=== PATIENT | female | born 1935 | race Caucasian/White ===

== ENCOUNTER → 2019-06-02 | Outpatient (CLI) | payer MEDICARE | END | disposition home or self-care (01) | LOC: LABPAT 08:57 | PROVIDERS: ATTEND Orthopaedic Surgery | DX: Z01.812 Encounter for preprocedural laboratory examination (principal); M16.11 Unilateral primary osteoarthritis, right hip | CPT/HCPCS: 87070 ==

== ENCOUNTER 2019-06-09 06:31 | Inpatient (IN) | payer MEDICARE ==
--- NOTE | 2019-06-08 14:08 | HP ---
HISTORY AND PHYSICAL REASON FOR ADMISSION: Surgery is scheduled for 06/09/2019 HISTORY OF PRESENT ILLNESS: Abeba Henson is an 84-year-old patient seen with symptomatic right hip osteoarthritis. We discussed options for treatment. She elected to proceed with right total hip arthroplasty via direct anterior approach. Consent was obtained regarding the procedure. Medical clearance was provided by Dr. Maddox. PAST MEDICAL HISTORY: Hypertension, rhh-rncbume-wtgkcvomo diabetes. SURGICAL HISTORY: Right knee unicompartmental arthroplasty. MEDICATIONS: Losartan, metformin, meloxicam. ALLERGIES: None. SOCIAL HISTORY: She denies current tobacco use. PHYSICAL EXAMINATION: Evaluation of the right hip, she has very limited range of motion with severe pain. Positive hip impingement sign. Diffuse tenderness. Gross weakness. Distal neurovascular exam is intact. RADIOGRAPHS: Radiographs of the right hip reveal severe osteoarthritic changes. IMPRESSION: 1. Right hip osteoarthritis. 2. Hypertension. 3. Ndl-wmdksvi-jxbfgpjve diabetes. PLAN: Direct anterior right total hip arthroplasty. Surgery is scheduled for 06/09/2019. MMODL / IJN: [id number] /
[~2019-06-09 06:31] MED LIST: LIDOCAINE 1% 20 ML VIAL (10MG/ML) FOR IV START INTRADERMA PRN; MIDAZOLAM 2 MG/2 ML VIAL IV PRN; ROPIVACAINE 246.25 MG, EPINEPHrine 0.5 MG, KETOROLAC 30 MG, cloNIDine HCL/PF 80 MCG, WA... MISCELLANE ONE; TRANEXAMIC ACID 1,000 MG in SODIUM CHLORIDE 0.9% 100 ML IVPB ONE
[2019-06-09 07:01] LABS: Glucose,Whole Blood 129 mg/dL (75-99)
[2019-06-09] MEDS: MELOXICAM 7.5 MG TAB PO ONE ×2 (07:07→12:13)
[2019-06-09] MEDS: ACETAMINOPHEN TAB 500 MG TAB PO ONE ×2 (07:07→12:13)
[2019-06-09] MEDS: LACTATED RINGERS 1,000 ML IV SCH ×3 (07:08→12:13)
[2019-06-09] MEDS ORDERED: ONDANSETRON 4 MG/2 ML VIAL IVP ONE (07:10)
[2019-06-09] MEDS ORDERED: DEXAMETHASONE SOD PHOSPHATE 10 MG/ML 1 ML VIAL IV ONE (07:10)
[2019-06-09] MEDS ORDERED: SCOPOLAMINE 1.5MG/72HR PATCH TRANSDERM ONE (07:15)
[2019-06-09] MEDS ORDERED: MIDAZOLAM 2 MG/2 ML VIAL ONE (07:24)
[2019-06-09] MEDS ORDERED: fentaNYL (PF) 50 MCG/ML 2 ML AMP ONE (07:24)
[2019-06-09] MEDS ORDERED: HYDROmorphone (PF) 1 MG/ML ONE (07:24)
[2019-06-09] MEDS ORDERED: SODIUM CHLORIDE 0.9% 100 ML BAG ONE (07:24)
[2019-06-09] MEDS ORDERED: LIDOCAINE 1% INJ 10MG/ML (20 ML MDV) ONE (07:24)
[2019-06-09] MEDS ORDERED: PROPOFOL 10 MG/ML 20 ML VIAL IV ONE (07:24)
[2019-06-09] MEDS ORDERED: SUCCINYLCHOLINE CHLORIDE 100 MG/5 ML SYR IV ONE (07:24)
[2019-06-09] MEDS ORDERED: TRANEXAMIC ACID 1,000 MG/10 ML VIAL ONE (07:24)
[2019-06-09] MEDS ORDERED: ceFAZolin 3,000 MG in SODIUM CHLORIDE 0.9% IRRIGATIO 3,000 ML IRRIGATION ONE (08:15)
[2019-06-09] MEDS ORDERED: ONDANSETRON 4 MG/2 ML VIAL IVP PRN ×2 (09:27→15:22)
[2019-06-09] MEDS ORDERED: HYDROmorphone 0.5 MG/0.5 ML SYRINGE IVP PRN ×3 (09:27)
[2019-06-09] MEDS ORDERED: NALOXONE 0.4 MG/ML 1 ML VIAL IV PRN (09:27)
[2019-06-09] MEDS ORDERED: HYDROcodone/APAP 5-325MG 1 EACH TAB PO PRN (09:27)
--- NOTE | 2019-06-09 09:27 | P.OP ---
Date of Procedure: 06/09/19 Preoperative Diagnosis: Right hip osteoarthritis Postoperative Diagnosis: Right hip osteoarthritis Procedure(s) Performed: Direct anterior right total hip arthroplasty Implants: 1. Depuy Corail KA size 12 with collar press-fit femoral stem 2. Depuy Royal 52 mm press-fit multi hole acetabular shell 3. Depuy pinnacle 52 mm OD 36 mm ID neutral polyethylene acetabular liner 4. Depuy 36 mm -2 metal femoral head Anesthesia: MICHELLE, local Surgeon: Wai Ratliff Estimated Blood Loss (ml): 100 Pathology: other (Femoral head) Condition: stable Disposition: PACU Indications for Procedure: 84-year-old patient seen with symptomatic right hip osteoarthritis. After treatment options were discussed, she elected to proceed with total hip arthroplasty. Operative Findings: See description of procedure Description of Procedure: The patient was taken to the operative suite. Patient underwent a spinal anesthetic by the department of anesthesia. Patient was then transferred to the [place] table. Patient was given preoperative IV antibiotics and TXA. Both lower extremities were placed in standard leg spars. It did not appear that the spinal was working in the patient subsequently underwent a general anesthetic by the department of anesthesia. The hip was then prepped and draped in the normal sterile orthopedic fashion. A standard anterior incision was made beginning 3 cm lateral and 1 cm distal to the ASIS extending 10 cm. Dissection was then carried down through the subcutaneous soft tissues down to the fascia overlying the tensor fascia abdoulaye. An incision was now made through the fascia. Careful dissection was taken down exposing the tensor fascia abdoulaye muscle. A Cobra retractor was now placed along the medial femoral neck and a second one along the lateral femoral neck. The venous circumflex vessels were now identified, cauterized and clipped. We identified the anterior hip capsule. An incision was made through the hip capsule along the lateral border. I performed a partial anterior capsulectomy. Retractors were now placed around the femoral neck itself. A femoral neck cut was now made with a sagittal saw. It was completed with an osteotome at the lateral neck area. The femoral head was now removed without difficulty. The extremity was now rotated to 45 of external rotation. It was locked in position. Residual labrum was now debrided out. Serial reaming was performed of the acetabulum while my retail administrative assistant assisted holding an anterior retractor for exposure. Once we reached the appropriate size and a trial was position and fit nicely. The appropriate size was now chosen opened and made available. It was introduced into the acetabulum without difficulty. The C-arm/fluoroscopy was now brought into the operative field. We made sure we had a true AP pelvic view. We now under direct C-arm/fluoroscopy introduced into the acetabular component with appropriate version and inclination. I held the cup in appropriate position while my retail administrative assistant used a mallet to seat the acetabular component. I noted the component now to be well seated and stable. Acetabular cup introduce her was removed. The C-arm was pulled back. An appropriate liner was introduced and clicked into position. It was felt to be stable. At this point retractors were removed. The extremity was now placed into 120 external rotation with no traction. The leg was now d ropped to the ground and adducted. Appropriate retractors were now positioned along the proximal femur. We also placed our femoral look into position. Additional capsular releasing was performed to gain access to the proximal femur. We now used a box osteotome. A canal finder was now utilized. Serial broaching was now performed with the assistance of my retail administrative assistant tapping the broaches down with a mallet while held the broach in appropriate rotation and position. This was done until we reached the appropriate size with good overall rotational stability. Appropriate calcar planing was performed. A trial head/neck was placed into position. The hip was now reduced. The C- arm/fluoroscopy was brought back into the operative field. A spot film was obtained of the nonoperative hip. A spot film was obtained of the trial components. Overlays were performed, we noted good overall alignment and positioning for determining leg length. The C-arm/fluoroscopy was pulled back. Retractors were repositioned and the hip was dislocated. The leg was again taken down to the ground and adducted. Appropriate retractors were repositioned as well as the femoral hook. All trial components were removed. The femoral implant was opened along with the femoral head. The femoral implant was introduced on the appropriate handle into our pre-broached area. I held the component position while my retail administrative assistant used a mallet to seat the femoral component. The femoral component was now noted to be well seated and stable.. The femoral head was introduced with good positioning and fixation noted. Retractors were now removed. The hip was now reduced. There appeared be good positioning of the hip confirmed on intraoperative fluoroscopy. Spot films were obtained to document this. A second gram of TXA was given. The deep and superficial soft tissues were infiltrated with local analgesic. Bipolar cautery had been utilized intermittently through the procedure for hemostasis. The wound was irrigated copiously with pulse lavage mechanical irrigation. The fascia was repaired with Vicryl suture. The subcutaneous soft tissues were repaired in layers with Vicryl suture. The skin was approximated with pernio/Dermabond. Sterile dressings were applied. Patient was then awakened, transferred to a bed and taken to recovery in stable condition.
--- NOTE | 2019-06-09 09:33 | FL ---
Fluoroscopy HISTORY: Hip replacement 18 seconds fluoroscopy time supplied to the referring clinician. 2 intraoperative C-arm images docum ent the procedure. See dictated report from orthopedic surgery.
--- NOTE | 2019-06-09 09:33 | XR ---
Limited right hip HISTORY: Anterior hip replacement 2 intraoperative C-arm images document the procedure.
[2019-06-09] MEDS: HYDROmorphone 0.5 MG/0.5 ML SYRINGE IVP PRN ×2 (09:48→10:18)
[2019-06-09 10:13] LABS: Glucose,Whole Blood 166 mg/dL (75-99)
[2019-06-09] MEDS: SODIUM CHLORIDE 0.9% 1,000 ML IV SCH (12:14)
[2019-06-09 13:36] VITALS: BMI 31.5
[2019-06-09] MEDS ORDERED: ACETAMINOPHEN TAB 500 MG TAB PO PRN (13:36)
[2019-06-09] MEDS ORDERED: diphenhydrAMINE 25 MG CAP PO PRN (13:40)
[2019-06-09] MEDS: LOSARTAN 50 MG TAB PO SCH (15:16)
[2019-06-09 18:18] LABS: Glucose,Whole Blood 225 mg/dL (75-99)
[2019-06-09] MEDS: INSULIN ASPART (NovoLOG) 100 UNIT/ML VIAL SQ SCH ×2 (18:24→20:44)
[2019-06-09] MEDS: HYDROcodone/APAP 5-325MG 1 EACH TAB PO PRN (19:12)
[2019-06-09] MEDS: SENNOSIDES-DOCUSATE SODIUM 1 EACH TAB PO SCH (20:44)
[2019-06-09 20:48] LABS: Glucose,Whole Blood 238 mg/dL (75-99)
--- NOTE | 2019-06-09 23:35 | CONS ---
CONSULTATION DATE OF SERVICE: 06/09/2019. REASON FOR CONSULTATION: Advice regarding diabetes and other medical issues requested by Dr. Ratliff. HISTORY OF PRESENT ILLNESS: This 84-year-old woman with a past medical history of multiple medical problems including diabetes, hypertension, hyperlipidemia, DJD, hysterectomy, being followed by Dr. Claribel Maddox in the outpatient setting underwent direct anterior right total hip joint arthroplasty by Dr. Ratliff. There is no history of chest pain. No history of palpitations. No headache, loss of consciousness, nausea, vomiting, fevers and chills. PAST MEDICAL HISTORY: History of diabetes, hypertension, hyperlipidemia, history of DJD, history of hysterectomy. MEDICATIONS: Prior to admission include: 1. Metformin 500 mg p.o. daily. 2. Moduretic 1 tablet p.o. daily. 3. Mobic 7.5 daily. 4. Cozaar 50 mg. 5. Lipitor 20 mg daily. 6. Tylenol p.m. 1 tab q.h.s. p.r.n. ALLERGIES: None. FAMILY HISTORY: No history of heart disease or strokes in the family. SOCIAL HISTORY: No history of smoking. No history of alcohol. REVIEW OF SYSTEMS: ENT: Diminished vision. Diminished hearing. CARDIOVASCULAR: No angina or palpitations. RESPIRATIONS: No cough or hemoptysis. GI no nausea or vomiting. no dysuria. NERVOUS SYSTEM: No numbness or weakness. ALLERGY/IMMUNOLOGY: No asthma or hayfever. MUSCULOSKELETAL: As mentioned earlier. HEMATOLOGY/ONCOLOGY: No history of anemia. ENDOCRINE: Diabetes mellitus. CONSTITUTIONAL: As mentioned earlier. DERMATOLOGY: Negative. RHEUMATOLOGY: Negative. PSYCHIATRIC: As mentioned earlier. PHYSICAL EXAMINATION: The patient is alert and oriented times three. Pulse is 85. Blood Pressure 140/65. Respirations 16. Pulse ox 99% on 2 L. HEENT: Conjunctivae normal. NECK: No jugular venous distention. CARDIOVASCULAR: S1, S2 muffled. RESPIRATIONS: Breath sounds diminished in the bases. No rhonchi. No crackles. ABDOMEN: Soft, nontender. LEGS: Status post surgery. CENTRAL NERVOUS SYSTEM: no focal deficits. LABS: Accu-Cheks 166. Otherwise previous preop labs CBC, coags are normal. Chemistry shows BUN and creatinine ratio was high but BUN and creatinine both are normal. The LDH 124 and cholesterol is 202. ASSESSMENT: 1. Status post right total hip joint arthroplasty. 2. Diabetes type 2. 3. Hypertension. 4. Hyperlipidemia. 5. Degenerative joint disease. 6. History of cataracts. 7. High BUN and creatinine ratio prior to admission. RECOMMENDATIONS AND DISCUSSION: This 84-year-old woman presented after surgery, at this time, I recommend to continue current medications, symptomatic treatment. Otherwise, resume the home medications. I would recommend hold diuretics and we will continue to monitor. Otherwise continue with IV fluids for tonight and repeat labs in the morning. DVT prophylaxis. Incentive spirometry. We will follow the patient closely. Patient may be asked to follow up with primary physician closely in the outpatient setting. Thank you Dr. Ratliff for letting us participate in the care of this patient. MMVINCENTL / IJN: [id number] /
[2019-06-10] MEDS: HYDROcodone/APAP 5-325MG 1 EACH TAB PO PRN ×3 (05:17→18:26)
[2019-06-10] MEDS: SODIUM CHLORIDE 0.9% 1,000 ML IV SCH (05:18)
[2019-06-10 07:04] LABS: Glucose,Whole Blood 153 mg/dL (75-99)
[2019-06-10 07:08] LABS: Calcium 8.3 mg/dL (8.4-10.2); Potassium 3.8 mmol/L (3.5-5.1)
[2019-06-10 07:25] LABS: Basophils % (A) 1 %; Eosinophils % (A) 1 %; HCT 27.2 % (34.0-46.0); Lymphocytes % (A) 20 %; MCH 30.2 pg (25.0-35.0); MCV 88.9 fL (80.0-100.0); Mean Platelet Volume 7.5; Monocytes % (A) 5 %; Neutrophils % (A) 73 %; Platelet Count 198 k/uL (150-450); RBC 3.06 m/uL (3.80-5.40); WBC 7.3 k/uL (3.8-10.6)
[2019-06-10 07:26] LABS: Basophils # (A) 0.1 k/uL (0-0.2); Lymphocytes # (A) 1.5 k/uL (1.0-4.8); Monocytes # (A) 0.4 k/uL (0-1.0); Neutrophils # (A) 5.3 k/uL (1.3-7.7)
[2019-06-10 07:29] LABS: HGB 9.2 gm/dL (11.4-16.0)
[2019-06-10] MEDS: INSULIN ASPART (NovoLOG) 100 UNIT/ML VIAL SQ SCH ×4 (07:34→20:18)
--- NOTE | 2019-06-10 07:46 | P.PN ---
Progress Note - Text Progress Note Date: 06/10/19 Patient seen lying in bed comfortably. Patient reports her pain is under control. Patient has no new complaints today. Incision stable. Thigh soft. Distal neurovascular exam is intact. Negative Mosesnegative Homans. Impression: Status post direct anterior right total hip arthroplasty Plan: Physical therapy DVT prophylaxis Medical management Plan discharge to home tomorrow
[2019-06-10] MEDS: LOSARTAN 50 MG TAB PO SCH (08:28)
[2019-06-10] MEDS: FAMOTIDINE 20 MG TAB PO SCH (08:28)
[2019-06-10] MEDS: MELOXICAM 7.5 MG TAB PO SCH (08:28)
[2019-06-10] MEDS: metFORMIN 500 MG TAB PO SCH (08:28)
[2019-06-10] MEDS: ATORVASTATIN 20 MG TAB PO SCH (08:28)
[2019-06-10] MEDS: LACTATED RINGERS 1,000 ML IV SCH (08:41)
[2019-06-10] MEDS ORDERED: aMILoride-HCTZ 5-50 mg 1 EACH TAB PO SCH (09:00)
[2019-06-10] MEDS ORDERED: ENOXAPARIN 40 MG/0.4 ML SYRINGE SQ SCH (09:00)
[2019-06-10 11:55] LABS: Glucose,Whole Blood 127 mg/dL (75-99)
--- NOTE | 2019-06-10 16:36 | PN ---
PROGRESS NOTE DATE OF SERVICE: 06/10/2019 This 84-year-old woman who was admitted after right total knee joint arthroplasty is being closely monitored. No chest pain. No palpitations. No fever. PHYSICAL EXAMINATION: Alert and oriented x3. Pulse 72, blood pressure 103/56, respiration 18, temperature 98.8, pulse ox 94% on room air. HEENT: Conjunctivae normal. NECK: No jugular venous distention. CARDIOVASCULAR SYSTEM: S1, S2 muffled. RESPIRATORY SYSTEM: Breath sounds diminished at the bases. No rhonchi. No crackles. ABDOMEN: Soft, non-tender. LEGS: Status post hip arthroplasty. NERVOUS SYSTEM: No focal deficit. LABS: WBC 7.3, hemoglobin 9.2. Sodium 136. Accu-Cheks noted. Calcium 8.3. ASSESSMENT: 1. Status post right total hip joint arthroplasty. 2. Diabetes mellitus, type 2. 3. Hypertension. 4. Hyperlipidemia. 5. Degenerative joint disease. 6. History of cataracts. 7. High BUN/creatinine ratio prior to admission, normalized. 8. Mild hyponatremia. 9. Mild hypocalcemia. 10.Anemia, as expected. RECOMMENDATIONS AND DISCUSSION: In this 84-year-old woman who presented after surgery, I would recommend continuing the current management and symptomatic treatment. Otherwise, iron supplements, vitamin D supplements. We will continue to monitor. Recommend close followup with primary physician in the outpatient setting. Further recommendations to follow. MMODL / IJN: [id number] /
[2019-06-10 17:00] LABS: Glucose,Whole Blood 172 mg/dL (75-99)
[2019-06-10] MEDS: CALCIUM CARB-VIT D 500MG-200UN 1 EACH TAB PO SCH (17:36)
[2019-06-10] MEDS: SENNOSIDES-DOCUSATE SODIUM 1 EACH TAB PO SCH (20:17)
[2019-06-10 20:26] LABS: Glucose,Whole Blood 188 mg/dL (75-99)
[2019-06-11] MEDS: HYDROcodone/APAP 5-325MG 1 EACH TAB PO PRN ×2 (00:53→13:24)
[2019-06-11] MEDS: SODIUM CHLORIDE 0.9% 1,000 ML IV SCH (00:55)
[2019-06-11 07:07] LABS: Glucose,Whole Blood 114 mg/dL (75-99)
[2019-06-11] MEDS: INSULIN ASPART (NovoLOG) 100 UNIT/ML VIAL SQ SCH ×2 (07:13→12:03)
[2019-06-11] MEDS: LOSARTAN 50 MG TAB PO SCH (07:35)
[2019-06-11] MEDS: CALCIUM CARB-VIT D 500MG-200UN 1 EACH TAB PO SCH (07:35)
[2019-06-11] MEDS: metFORMIN 500 MG TAB PO SCH (07:35)
[2019-06-11] MEDS: ATORVASTATIN 20 MG TAB PO SCH (07:35)
[2019-06-11] MEDS: LACTATED RINGERS 1,000 ML IV SCH (07:36)
[2019-06-11] MEDS: MELOXICAM 7.5 MG TAB PO SCH (07:36)
[2019-06-11] MEDS: FAMOTIDINE 20 MG TAB PO SCH (07:36)
[2019-06-11] MEDS ORDERED: ENOXAPARIN 30 MG/0.3 ML SYRINGE SQ SCH (09:00)
[2019-06-11 09:10] VITALS: BP 132/62; PULSE 75; RESP 18; TEMP 98.8
--- NOTE | 2019-06-11 11:32 | P.PN ---
Progress Note - Text Progress Note Date: 06/11/19 Patient seen sitting up in a chair comfortably. She states that she has been getting around fairly well with her walker. Her pain is under control with oral medication. Incision stable. Thigh soft. Ming and Homans are both negative. Impression: Status post direct anterior right total hip arthroplasty Plan: Discharge to home today
[2019-06-11 11:56] LABS: Glucose,Whole Blood 139 mg/dL (75-99)
[2019-06-11] MEDS ORDERED: FERROUS SULFATE 325 MG TAB PO SCH (12:30)
--- NOTE | 2019-06-11 14:08 | CDI ---
Documentation Clarification Form Date: 06/11/2019 1:58:04 PM From: Ayala Ziegler RN, CCDS Admit Date: 06/09/2019 6:31:00 AM Patient Name: Abeba Henson Visit Number: [id number] ATTENTION: The Clinical Documentation Specialists (CDI) and [facility] Coding Staff appreciate your assistance in clarifying documentation. Please respond to the clarification below the line at the bottom and electronically sign. The CDI & [facility] Coding staff will review the response and follow-up if needed. Please note: Queries are made part of the Legal Health Record. If you have any questions, please contact the author of this message via ITS. Dr. Cammy Fisher A diagnosis of anemia lacks specificity to accurately reflect your patients severity of condition and clarification is needed. History/Risk Factors: Right VENICE this admit, HTN, NIDDM Clinical indicators: 06/10 Medical Progress Note: Anemia as expected." Hemoglobin: 9.2 Hematocrit: 27.2 Treatment: monitoring labs Feosol 325 mg PO QD In order to capture the severity of condition, please clarify the type of anemia and etiology if known: Acute blood loss anemia Acute on chronic blood loss anemia Chronic blood loss anemia Iron deficiency anemia Nutritional anemia Anemia of chronic disease Unable to determine Other, please specify (Last Revision: June 2017) Unable to determine MTDD
--- NOTE | 2019-06-11 19:37 | PN ---
PROGRESS NOTE DATE OF SERVICE: 06/11/2019. This 84-year-old woman was admitted after right total hip joint arthroplasty, improving significantly. No chest pain. No palpitations. No fever. PHYSICAL EXAM: Alert and oriented times three. Pulse 75. Blood pressure 122/60, respiration 18, temperature 98.8, pulse ox 94% on room air. HEENT is conjunctivae normal. Oral mucosa moist. NECK is no jugular venous distention. No carotid bruit. No lymph node enlargement. Cardiovascular systems: S1, S2 muffled. RESPIRATION: Breath sounds diminished in the bases. No rhonchi. No crackles. ABDOMEN: Soft. LEGS: Status post surgery. CENTRAL NERVOUS SYSTEM: No focal deficits. LABORATORY DATA: Accu-Cheks 188, 114, 139. ASSESSMENT: 1. Status post right total hip joint arthroplasty. 2. Diabetes mellitus type 2. 3. Hypertension. 4. Hyperlipidemia. 5. History of degenerative joint disease. 6. History of cataracts. 7. High BUN and creatinine ratio prior to admission, improved. 8. Mild hyponatremia. 9. Mild hypocalcemia. 10.Anemia of undetermined etiology, unable to determined. RECOMMENDATIONS AND DISCUSSION: Recommend to continue current medications, management and symptomatic treatment. Otherwise, at this time, I recommend to follow the patient closely. Continue the home medications. Follow closely with primary physician in the outpatient setting. Rest of the recommendations per surgery. Further recommendations to follow. MMODL / IJN: [id number] /
== END 2019-06-11 15:43 | disposition home health service (06) | DRG 470 ==
LOC: 2ORMAIN 06:31 → 4SSUR 11:53
PROVIDERS: ADMIT Orthopaedic Surgery; ATTEND Orthopaedic Surgery
PROC: 0SR902A Replacement of Right Hip Joint with Metal on Polyethylene Synthetic Substitute, Uncemented, Open Approach (ICD-10-PCS; principal; 2019-06-09 07:30)
DX: M16.11 Unilateral primary osteoarthritis, right hip (principal); E87.1 Hypo-osmolality and hyponatremia; E11.9 Type 2 diabetes mellitus without complications; E78.5 Hyperlipidemia, unspecified; E83.51 Hypocalcemia; D64.9 Anemia, unspecified; I10 Essential (primary) hypertension; Z96.659 Presence of unspecified artificial knee joint; Z79.84 Long term (current) use of oral hypoglycemic drugs; Z90.710 Acquired absence of both cervix and uterus; Z98.49 Cataract extraction status, unspecified eye
CPT/HCPCS: 36415; 73501; 80048; 85025; 86850; 86900; 86901; 88300

== ENCOUNTER → 2020-04-30 | Outpatient (CLI) | payer MEDICARE ==
--- NOTE | 2020-04-30 10:27 | CT ---
EXAMINATION TYPE: CT shoulder RT wo con DATE OF EXAM: 04/30/2020 COMPARISON: Outside shoulder x-ray November 05, 2019 HISTORY: Right shoulder pain with decreased range of motion. CT DLP: 413 mGycm Automated exposure control for dose reduction was used. FINDINGS: Moderate to severe narrowing of the acromioclavicular joint with moderate to severe superior capsular hypertrophy. There is loss of the underlying fat plane fat level distal clavicle coronal image 47. C orrelate for underlying impingement. Distal acromion morphology unremarkable. Glenohumeral joint shows severe narrowing particularly inferior aspect where there are subchondral cy stic change involving the inferior one half of the glenoid. There is prominent spur extending inferio rly from the medial humeral head. Additional spurring anteriorly and posteriorly is present. Rotator cuff muscle bulk is maintained. There is some subchondral cystic change and sclerosis in the superior aspect of the humeral head. Hill-Sachs deformity fell present along the posterior lateral as pect of the right humeral head on most superior axial images. Focal fluid collection anterior to the subscapularis muscle axial image 27 is suspicious for bursitis . Visualized lungs are grossly clear. Osseous structures are somewhat demineralized. Enlarged bilateral pulmonary arteries are present, CT findings consistent with underlying pulmonary hypertension. Coron gucci artery calcification is partially imaged which is noted marked of underlying coronary artery dise ase. IMPRESSION: As above. Fairly severe degenerative changes of right shoulder.
== END | disposition home or self-care (01) ==
LOC: RADCTMAIN 09:23
PROVIDERS: ATTEND Orthopaedic Surgery Sports Medicine
DX: M19.011 Primary osteoarthritis, right shoulder (principal)

== ENCOUNTER → 2020-11-05 | Outpatient (CLI) | payer MEDICARE ==
--- NOTE | 2020-11-05 10:27 | US ---
EXAMINATION TYPE: US renal artery duplex complet DATE OF EXAM: 11/05/2020 COMPARISON: NONE CLINICAL HISTORY: I10 essential hypertension. Pt states worsening HTN Difficult exam, 85 year old pt, difficult exam MEASUREMENTS: RENAL SIZE: Rt Kidney: 10.1 x 4.3 x 4.5 cm Lt Kidney: 9.6 x 5.1 x 4.5 cm RESISTANCE INDEX Right: 0.8 Left: 0.7 RA/AO RATIO (< 3.5 ) Right: 1.2 Left: 1.1 RA VELOCITY ( < 180 cm/s) Right: 152 Left: 141 Abnormal appearance to distal portion of aorta ?septation vs. 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 No renal stenosis. 2. 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 Consider CT byron elation. 3. Multicystic kidneys.
== END | disposition home or self-care (01) ==
LOC: RADUSWWP 08:37
PROVIDERS: ATTEND Family Medicine
DX: I71.02 Dissection of abdominal aorta (principal); Q61.3 Polycystic kidney, unspecified; I10 Essential (primary) hypertension
CPT/HCPCS: 93975

== ENCOUNTER → 2020-11-26 | Outpatient (CLI) | payer MEDICARE ==
--- NOTE | 2020-11-26 16:04 | CT ---
EXAMINATION TYPE: CT angio abdomen pelvis DATE OF EXAM: 11/26/2020 HISTORY: Chronic kidney disease. High blood pressure. Abnormal US. CT DLP: 1758mGycm Automated Exposure Control for Dose Reduction was Utilized. CONTRAST: CTA scan of the abdomen and pelvis is performed without oral and without and with IV Contrast, patien t injected with 80 mL of Isovue 370. Aneurysm protocol with 3-D reconstructed images created on an in dependent workstation and reviewed. COMPARISON: Ultrasound renal artery duplex November 05, 2020 FINDINGS: VASCULAR: Mild to moderate calcified plaque of the upper to mid abdominal aorta. Patent celiac artery and SMA without significant stenosis. Patent bilateral single renal arteries with prominent calcifie d plaque at their origin, no significant stenosis clearly seen. There is more moderate to severe calc ified plaque in the infrarenal abdominal aorta. There is patent YOGESH. There is no linear hypodensity t o suggest dissection. No greater than 3.0 cm aneurysm. There is however small focal 1.8 cm aneurysm i n the right common iliac artery axial image 42. Moderate to severe calcified plaque in the iliac epifanio ry branches without significant stenosis is present. There is more mild plaque in the femoral arterie s in the groin region. LUNG BASES: Slightly elevated left hemidiaphragm. Calcification level of the aortic valve. Mild/moder ate calcification in the right coronary and left circumflex distributions. LIVER/GB: No significant abnormality is appreciated. PANCREAS: No significant abnormality is seen. SPLEEN: Tiny splenule axial image 16 series 4. 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 KIDNEYS: Cortical thinning both kidneys. No concerning renal mass or hydronephrosis. Small parapelvic cysts centrally in the left kidney are present. BOWEL: Small sized hiatal hernia. Suboptimal evaluation without enteric contrast. Sigmoid colonic div erticulosis. No suspicious bowel dilatation. UTERUS/ADNEXA: Uterus surgically absent or markedly atrophic in appearance. LYMPH NODES: No greater than 1cm abdominal or pelvic lymph nodes are appreciated. OSSEOUS STRUCTURES: Metallic artifact from bilateral arthroplasty causes streak artifact limiting fahad luation of pelvic structures. Grade 1 anterolisthesis L5 on S1 with severe disc space narrowing. Mild disc space narrowing and vacuum disc phenomenon L4-L5 level. OTHER: Small fat-containing umbilical hernia. IMPRESSION: More moderate to severe calcified plaque of the distal abdominal aorta is noted. No abdom inal aortic aneurysm or dissection. 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
== END ==
LOC: RADCTMAIN 13:04
PROVIDERS: ATTEND Family Medicine
DX: N18.32 Chronic kidney disease, stage 3b (principal); I70.0 Atherosclerosis of aorta; I72.3 Aneurysm of iliac artery
CPT/HCPCS: 82565; 84520; 36415; 74174; Q9967

== ENCOUNTER → 2023-05-08 | Outpatient (CLI) | payer MEDICARE ==
--- NOTE | 2023-05-08 17:44 | CA ---
Transthoracic Echo Report Name: Abeba Henson Age: 87 Gender: F : 1935 Exam Date: 05/08/2023 12:34 Exam Location: [facility] Ht (in): 60 Wt (lb): 158 Ordering Physician: Claribel Maddox MD Attending/Referring Phys: Glass Vial Bending Conveyor Feeder Karma Patton RDCS Procedure CPT: Indications: R01.1 CARDIAC MURMUR, UNSPECIFIED Cardiac Hx: Technical Quality: Fair Contrast 1: Total Dose (mL): Contrast 2: Total Dose (mL): MEASUREMENTS (Male / Female) Normal Values 2D ECHO LV Diastolic Diameter PLAX 4.0 cm 4.2 - 5.9 / 3.9 - 5.3 cm LV Systolic Diameter PLAX 2.9 cm IVS Diastolic Thickness 1.3 cm 0.6 - 1.0 / 0.6 - 0.9 cm LVPW Diastolic Thickness 1.3 cm 0.6 - 1.0 / 0.6 - 0.9 cm LV Relative Wall Thickness 0.6 RV Internal Dim ED PLAX 3.8 cm LA Systolic Diameter LX 3.4 cm 3.0 - 4.0 / 2.7 - 3.8 cm LV Diastolic Volume MOD 4C 64.1 cm??? LV Systolic Volume MOD 4C 35.5 cm??? LV Ejection Fraction MOD 4C 44.6 % LV Cardiac Index MOD 4C 1083.0 cm???/min???m??? LV Diastolic Length 4C 7.7 cm LV Systolic Length 4C 5.9 cm LV Diastolic Volume MOD 2C 50.9 cm??? LV Systolic Volume MOD 2C 27.4 cm??? LV Ejection Fraction MOD 2C 46.2 % LV Cardiac Index MOD 2C 890.3 cm???/min???m??? LV Diastolic Length 2C 6.9 cm LV Systolic Length 2C 5.8 cm LA Volume 64.2 cm??? 18 - 58 / 22 - 52 cm??? M-MODE Aortic Root Diameter MM 3.7 cm MV E Point Septal Separation 1.5 cm AV Cusp Separation MM 2.1 cm DOPPLER AV Peak Velocity 136.2 cm/s AV Peak Gradient 7.4 mmHg AI Peak Velocity 269.6 cm/s AI Peak Gradient 29.1 mmHg AI Pressure Half Time 861.8 ms LVOT Peak Velocity 97.2 cm/s LVOT Peak Gradient 3.8 mmHg MV Area PHT 2.3 cm??? Mitral E Point Velocity 82.6 cm/s Mitral A Point Velocity 120.8 cm/s Mitral E to A Ratio 0.7 MV Deceleration Time 330.4 ms MV E' Velocity 6.0 cm/s Mitral E to MV E' Ratio 13.7 FINDINGS Left Ventricle Left ventricular ejection fraction is estimated at 50-55 %. Left ventricular cavity size normal. Moderately increased septal wall thickness. Mildly increased posterior wall thickness. Right Ventricle Mild right ventricular dilatation. Unable to estimate the right ventricular systolic pressure. Right Atrium Normal right atrial size. Left Atrium Moderately increased left atrial volume. Mildly increased left atrial area. Mitral Valve Mitral valve thickened. Mild mitral annular calcification. Trace to mild mitral regurgitation. Aortic Valve Aortic valve sclerosis. Mild aortic regurgitation. Tricuspid Valve Tricuspid valve not well visualized. No tricuspid regurgitation. Pulmonic Valve Pulmonic valve not well visualized. Trace pulmonic regurgitation. Pericardium No pericardial effusion. Aorta Normal size aortic root and proximal ascending aorta. CONCLUSIONS Left ventricular hypertrophy with normal LV function mild aortic regurgitation Previewed by: Dr. Olivier Iverson MD (Electronically Signed) Final Date: 08 May 2023 17:43
== END | disposition home or self-care (01) ==
LOC: RADECHMAIN 12:10
PROVIDERS: ATTEND Family Medicine
DX: I35.1 Nonrheumatic aortic (valve) insufficiency (principal); I51.7 Cardiomegaly; R01.1 Cardiac murmur, unspecified
CPT/HCPCS: 93306